=== PATIENT | male | born 1950 | race Caucasian/White ===

== ENCOUNTER 2022-11-05 14:37 | Emergency (ER) | payer MEDICARE, SELFPAY ==
[2022-11-05 15:40] VITALS: BP 186/110; PULSE 89; RESP 17; TEMP 36.8; O2SAT 96; BMI 22.4
--- NOTE | 2022-11-05 17:19 | DI.RAD.S_ITS ---
PROCEDURE: XR FINGER LT MIN 2V INDICATIONS: thumb tip cut with table saw TECHNIQUE: AP hand, 2 views of the thumb acquired. COMPARISON: None. FINDINGS: Bones: Distal tuft amputation of distal phalanx of thumb. No suspicious bony lesions. Soft tissues: No suspicious soft tissue calcifications. Distal thumb laceration. No radiopaque foreign body. IMPRESSION: Distal tuft amputation of distal phalanx of thumb Dictated by: Francesco Gooden M.D. on 11/05/2022 at 17:58 Approved by: Francesco Gooden M.D. on 11/05/2022 at 17:58
--- NOTE | 2022-11-05 18:04 | ED.WOUNDLAC ---
HPI - Wound/Laceration <KIKI Joseph - Last Filed: 11/05/22 19:26> General Chief Complaint: Wound/Laceration Stated Complaint: deep cut lt thumb whole tip cut off Time Seen by Provider: 11/05/22 16:54 History of Present Illness HPI narrative: 71-year-old male, daily smoker, presents to the emergency department after the cutting the tip of his left thumb off on a table saw earlier yesterday. Patient states that he cleaned the area with surgical cleanser and dressed it, which resulted in bleeding cessation. Patient went to see his family doctor on [facility] earlier today, had the wound redressed, and was sent to the emergency department for x-rays and possible orthopedic intervention. Reports that he saw bone during his evaluation. Patient is unsure of when his last tetanus shot was. Related Data Home Medications Medication Instructions Recorded Confirmed albuterol sulfate 90 mcg/actuation inhalation 11/05/22 aerosol inhaler fluticasone 250 mcg-salmeterol 50 inhalation 11/05/22 mcg/dose blistr powdr for inhalation (Advair Diskus) Previous Rx's Medication Instructions Recorded cephalexin 500 mg capsule 1,000 mg PO BID 10 days #40 caps 11/05/22 Allergies Allergy/AdvReac Type Severity Reaction Status Date / Time No Known Drug Allergies Allergy Verified 11/05/22 15:44 Review of Systems <KIKI Joseph - Last Filed: 11/05/22 19:26> Review of Systems Narrative: Narrative: See HPI. GENERAL: Denies chills, fatigue, fever, sweats. HEENT: Denies sinus pain, ear pain, sore throat, difficulty swallowing, dizziness. RESPIRATORY: Denies dyspnea, cough, wheezing, sputum. CARDIOVASCULAR: Denies chest pain, palpitations, edema. GASTROINTESTINAL: Denies nausea, vomiting, abdominal pain, diarrhea, constipation. : Denies dysuria, frequency, incontinence, hematuria, urinary retention, flank pain. MSK: Denies weakness, joint pain, or bony pain. SKIN: Denies rash. Endorses abrasions to left index finger and avulsion of left thumb tip. NEUROLOGIC: Denies weakness, dizziness, headache, numbness, confusion. PSYCHIATRIC: No concerning psychosocial issues. Patient History <KIKI Joseph - Last Filed: 11/05/22 19:26> Social History Smoking Status: Current every day smoker Smoking Status: Current every day smoker alcohol intake frequency: 3 or more drinks per day Substance Use Type: does not use Exam <KIKI Joseph - Last Filed: 11/05/22 19:26> Narrative Exam Narrative: Exam Narrative: GENERAL: This is a well-nourished, well-developed patient, in no acute distress. HEAD: Atraumatic. Normocephalic. EYES: No scleral icterus, injection or drainage. ENT: Nose without bleeding, purulent drainage. Airway patent. NECK: Trachea midline. No JVD. CARDIOVASCULAR: Regular rate and rhythm without murmurs, peripheral pulses intact, cap refill <2 sec. RESPIRATORY: Breath sounds equal and clear bilaterally. No wheezes, rales, or rhonchi. No cough. No increased respiratory effort. No accessory muscle use. MSK: Moves all extremities. Normal range of motion, no clubbing or edema. Neurovascularly intact. Avulsion laceration left thumb tip. Abrasions noted to left index finger. NEURO: A&O x 3. SKIN: Warm, dry, no rashes or lesions noted. Initial Vital Signs Initial Vital Signs: Vital Signs Temperature 98.2 F 11/05/22 15:40 Pulse Rate 89 11/05/22 15:40 Respiratory Rate 17 11/05/22 15:40 Blood Pressure 186/110 H 11/05/22 15:40 Pulse Oximetry 96 11/05/22 15:40 Oxygen Delivery Method Room Air 11/05/22 15:40 Reviewed <Joselyn Correa DO - Last Filed: 11/07/22 21:14> Initial Vital Signs Initial Vital Signs: Vital Signs Temperature 98.2 F 11/05/22 15:40 Pulse Rate 89 11/05/22 15:40 Respiratory Rate 17 11/05/22 15:40 Blood Pressure 186/110 H 11/05/22 15:40 Pulse Oximetry 96 11/05/22 15:40 Oxygen Delivery Method Room Air 11/05/22 15:40 Course <KIKI Joseph - Last Filed: 11/05/22 19:26> Orders Ordered: Discontinued Medications Cephalexin HCl (Cephalexin 250 Mg Capsule) 500 mg PO NOW ONE Stop: 11/05/22 18:34 Last Admin: 11/05/22 18:47 Dose: 500 mg Documented By: YOLETTE Diphtheria/Tetanus/Acell Pertussis (Tet,Diph,Pertuss(Acell),Vac/Pf 0.5 Ml Syringe) 0.5 ml IM .ONCE ONE Stop: 11/05/22 18:31 Last Admin: 11/05/22 18:34 Dose: 0.5 ml Documented By: YOLETTE Consultations Consultation #1: Dr. Bekah Yanez, Orthopedics. Dr. Yanez will contact patient over the weekend and scheduled time for him to come into her office Tuesday. Vital Signs Vital signs: Vital Signs - 8 hr 11/05/22 15:40 11/05/22 18:54 Temperature 98.2 F Pulse Rate 89 85 Respiratory Rate 17 18 Blood Pressure 186/110 H 175/80 H Pulse Oximetry 96 98 Oxygen Delivery Method Room Air <Joselyn Correa DO - Last Filed: 11/07/22 21:14> Orders Ordered: Discontinued Medications Cephalexin HCl (Cephalexin 250 Mg Capsule) 500 mg PO NOW ONE Stop: 11/05/22 18:34 Last Admin: 11/05/22 18:47 Dose: 500 mg Documented By: YOLETTE Diphtheria/Tetanus/Acell Pertussis (Tet,Diph,Pertuss(Acell),Vac/Pf 0.5 Ml Syringe) 0.5 ml IM .ONCE ONE Stop: 11/05/22 18:31 Last Admin: 11/05/22 18:34 Dose: 0.5 ml Documented By: YOLETTE Vital Signs Vital signs: Vital Signs - 8 hr 11/05/22 15:40 11/05/22 18:54 Temperature 98.2 F Pulse Rate 89 85 Respiratory Rate 17 18 Blood Pressure 186/110 H 175/80 H Pulse Oximetry 96 98 Oxygen Delivery Method Room Air MDM - Wound/Laceration <KIKI Joseph - Last Filed: 11/05/22 19:26> Differential Diagnosis Differential diagnosis: Likely laceration, abrasion and avulsion of skin Imaging Data Extremity x-ray #1: Radiologist's Impression: [address] [address] XRay Report Signed Patient: Dada Nunez MR#: [id number] : 1950 Acct:[id number] Age/Sex: 71 / M Date of Service: 11/05/22 Loc: ED Accession Number: [id number] ?? Procedure: XR finger LT min 2V Ordering Provider: Lanre Hare PROCEDURE:? XR FINGER LT MIN 2V ? INDICATIONS:? thumb tip cut with table saw ? TECHNIQUE:? AP hand, 2 views of the thumb acquired.? ? COMPARISON:? None. ? FINDINGS:? ? Bones:? Distal tuft amputation of distal phalanx of thumb.? No suspicious bony lesions.? ? Soft tissues:? No suspicious soft tissue calcifications.? Distal thumb laceration.? No radiopaque foreign body. ? IMPRESSION:? Distal tuft amputation of distal phalanx of thumb ? ? Dictated by: Francesco Gooden M.D. on 11/05/2022 at 17:58 ? ? Approved by: Francesco Gooden M.D. on 11/05/2022 at 17:58 ? MDM Narrative Medical decision making narrative: 71-year-old male presents to the emergency department after cutting his left thumb on a table saw yesterday. X-ray revealed a distal tuft amputation of distal phalanx of thumb. Discussed case with Dr. Yanez of Orthopedics, who will contact him over the weekend and schedule a time for him to come in Tuesday. Site was redressed with Vaseline gauze, Telfa pad and tube gauze. Tetanus status updated. Prescription for cephalexin sent to pharmacy, 1st dose given in the emergency department. Discussed plan of care and return precautions with patient, who verbalized understanding and was agreeable with course of action. Discharge Plan Departure Patient Disposition: Home Clinical Impression: Laceration, Fracture, finger Instructions: DI for Wound Infection Activity Restrictions/Additional Instructions: *You have been diagnosed with amputation of part of the left thumb tip. We have dressed the site and you should keep the dressing on until you see Dr. Bekah Yanez of Orthopedics Tuesday. We have updated your tetanus status. We have given you your 1st dose of antibiotics. Please fill the prescription at [facility] tomorrow morning and continue taking the full day course of antibiotics. Dr. Yanez should be contacting you this weekend to set up a time for you to come into her office on Tuesday. For any worsening symptoms, please feel free to return to the emergency department. Otherwise, follow up with your family doctor as needed. *What to do: *Please continue to take your regular medications as directed. [x ] New medication prescriptions sent to your pharmacy: [[facility]] [ ] New medication written as a paper prescription [ ] No new medications given *Please follow up with your primary care provider in 2-3 days, call for an appointment. Let them know you were seen in the Emergency Department and that we ask that you be seen in follow up. We will electronically transmit a record of today's note if your PCP is in our system *If you do not have a primary care provider please contact the [facility] Resource line at [phone]. They will ask some questions about your medical history and help get you set up with a doctor in the community. ? Return to ER if you should have any new, worsening or concerning symptoms, such as worsening pain, severe headache, confusion, chest pain, difficulty breathing, fever greater than 101 F, shaking chills, persistent vomiting to the point that you cannot drink fluids, or other new or worsening symptoms. Prescriptions: New cephalexin 500 mg capsule 1,000 mg PO BID 10 Days Qty: 40 0RF No Action fluticasone propion-salmeterol [Advair Diskus] 250-50 mcg/dose blister with device INHALATION albuterol sulfate 90 mcg/actuation HFA aerosol inhaler INHALATION Referrals: Miscellaneous,Doctor, [Primary Care Provider] - Stand Alone Forms: Patient Portal/API <Joselyn Correa DO - Last Filed: 11/07/22 21:14> Cosign ED Attending Amairani Attestation: I was immediately available in the department for consultation. Documentation has been reviewed.
[2022-11-05] MEDS: TET,DIPH,PERTUSS(ACELL),VAC/PF 0.5 ML SYRINGE IM (18:34)
[2022-11-05] MEDS: cephALEXin 250 MG CAPSULE 500 MG PO (18:47)
--- NOTE | 2022-11-05 18:52 | PC.NURSE ---
dressing applied to left thumb, zerofoam/vaselie gauze, nonadherent dsg, covered by tube gauze. extra supplies with patient. first dose abx given. rest of rx at [facility] in [place] in am to continue 2xday. fu tuesday with appt dr colby grant
[2022-11-05 18:54] VITALS: BP 175/80; PULSE 85; RESP 18; O2SAT 98
== END 2022-11-05 18:54 | disposition home or self-care (01) ==
PROVIDERS: Emergency Provider Registered Nurse
DX: S68.022A Partial traumatic metacarpophalangeal amputation of left thumb, initial encounter (principal); W27.0XXA Contact with workbench tool, initial encounter; Z23 Encounter for immunization
CPT/HCPCS: 73140; 99283; 90715